=== PATIENT | male | born 1995 | race African-American/Black ===

== ENCOUNTER 2018-02-01 12:16 | Emergency (ER) | payer BC ==
--- NOTE | 2018-02-01 13:39 | RAD ---
HISTORY: Right knee pain, twisting COMPARISONS: None VIEWS: 4, Frontal, lateral, axial, and oblique views of the right knee FINDINGS: BONE DENSITY: Normal. BONES: There is no displaced fracture. JOINTS: There is a large suprapatellar joint effusion. There is no appreciable lipohemarthrosis. ALIGNMENT: There is no dislocation. SOFT TISSUES: Unremarkable. OTHER FINDINGS: None. IMPRESSION: LARGE EFFUSION. NO ACUTE OSSEOUS INJURY. IF SYMPTOMS PERSIST, RECOMMEND REPEAT IMAGING.
[2018-02-01 14:59] VITALS: BP 122/72
--- NOTE | 2018-02-01 16:23 | ED ---
Lower Extremity - HPI Summary HPI Summary: Patient is a 22-year-old male presenting to the ED with chief complaint of right knee pain and swelling 2 weeks. He states he sustained an injury while attempting to get up from a short chair 2 weeks ago and felt a pop to the lateral portion of his knee with immediate swelling. He states the area had no pain and he was ambulating well, but with a moderate amount of swelling. 5 days ago he was seen by community health due to the continuing of swelling. He was encouraged ibuprofen and elevation, but states immediately after taking the ibuprofen his knee began to swell even more and now he is unable to ambulate. He endorses pain only with attempting to ambulate, better with rest. Pain is discretely located of the lateral side of the right knee and he denies any calf pain, upper or lower extremity pain including ankle pain or hip pain. Denies any erythema or warmth. Denies fevers. Denies any known rashes, but bites, history or chance of Lyme disease and has been feeling otherwise well. No history of gout. - History of Current Complaint Chief Complaint: EDExtremityLower Stated Complaint: RT KNEE PAIN/SWELLING Time Seen by Provider: 02/01/18 13:36 Hx Obtained From: Patient Mechanism Of Injury: Twisted Onset of Pain: Minutes Onset/Duration: Weeks Severity Initially: Mild Severity Currently: Mild Pain Intensity: 3 Pain Scale Used: 0-10 Numeric Timing: Constant Location: Is Discrete @ - R knee Character Of Pain: Aching Associated Signs And Symptoms: Positive: Knee Pain. Negative: Swelling, Redness , Bruising, Fever, Weakness, Dizziness, Abdominal Pain Aggravating Factor(s): Standing, Ambulation, Movement, Weight Bearing, Stairs Alleviating Factor(s): Rest, Elevation Able to Bear Weight: No - Risk Factors Gout Risk Factors: Male DVT Risk Factors: Negative Septic Arthritis Risk Factor: Negative - Allergies/Home Medications Allergies/Adverse Reactions: Allergies Allergy/AdvReac Type Severity Reaction Status Date / Time No Known Allergies Allergy Verified 02/01/18 12:24 Home Medications: Home Medications Naproxen Sodium [Aleve] 220 mg PO BID PRN 02/01/18 [History Confirmed 02/01/18] PMH/Surg Hx/FS Hx/Imm Hx Previously Healthy: Yes - Immunization History Hx Pertussis Vaccination: No Immunizations Up to Date: No Infectious Disease History: No Infectious Disease History: Denies: Traveled Outside the [place] in Last 30 Days - Social History Occupation: Unemployed, Student Lives: Dormitory/Roommates Alcohol Use: Rare Hx Substance Use: No Substance Use Type: Reports: None Hx Tobacco Use: No Smoking Status (MU): Never Smoked Tobacco Review of Systems Constitutional: Negative Negative: Fever, Chills, Fatigue, Skin Diaphoresis Positive: Photophobia Negative: Palpitations Negative: Shortness Of Breath, Cough Genitourinary: Negative Positive: no symptoms reported, see HPI Positive: Arthralgia, Myalgia Negative: Rash, Bruising Negative: Headache, Weakness, Paresthesia, Numbness, Syncope, Slurred Speech Psychological: Normal All Other Systems Reviewed And Are Negative: Yes Physical Exam Triage Information Reviewed: Yes Vital Signs On Initial Exam: Initial Vitals Temp Pulse Resp BP Pulse Ox 98.0 F 98 14 98/77 98 02/01/18 12:21 02/01/18 12:21 02/01/18 12:21 02/01/18 12:21 02/01/18 12:21 Vital Signs Reviewed: Yes Appearance: Positive: Well-Appearing, Well-Nourished Skin: Positive: Skin Color Reflects Adequate Perfusion Head/Face: Positive: Normal Head/Face Inspection Eyes: Positive: EOMI Neck: Positive: Supple, No Lymphadenopathy Respiratory/Lung Sounds: Positive: Clear to Auscultation, Breath Sounds Present Cardiovascular: Positive: RRR, Pulses are Symmetrical in both Upper and Lower Extremities Bowel Sounds: Positive: Present Musculoskeletal: Positive: Limited @ - straight leg raise, limited flexion and extension d/t swelling - little effusion. no bursa., Pain @ - R knee. Negative: Apurva Sign Left, Apurva Sign Right, Edema Left, Edema Right Neurological: Positive: Speech Normal Psychiatric: Positive: Normal, Affect/Mood Appropriate AVPU Assessment: Alert Diagnostics - Vital Signs Vital Signs Temp Pulse Resp BP Pulse Ox 02/01/18 14:55 97.6 F 74 18 122/72 98 02/01/18 12:21 98.0 F 98 14 98/77 98 - Laboratory Lab Statement: Any lab studies that have been ordered have been reviewed, and results considered in the medical decision making process. Lower Extremity Course/Dx - Course Course Of Treatment: Patient is evaluated for right knee pain after attempting to get up from a chair 2 weeks ago. On physical exam there appears to be bulging of the size of the patellar ligament and obliteration of the hollows at the medial and lateral edges. There is a large effusion with no fracture seen on xray. I did not tap this knee as patient states he will follow up tomorrow with ortho and he has had this effusion with no worsening of symptoms x 5 days. Risk factors for gout and septic arthritis/septic joint are low. Denies IV drug use, immunosuppression, open wounds, poor diet, PVD or alcohol use. - Diagnoses Provider Diagnoses: Joint effusion Discharge - Sign-Out/Discharge Documenting (check all that apply): Discharge/Admit/Transfer - Discharge Plan Condition: Stable Disposition: HOME Patient Education Materials: Swollen Knee Joint (ED) Referrals: [facility] - David MAURICIO [Primary Care Provider] - Trudy Peter MD [Medical Doctor] - Additional Instructions: Please follow-up with Dr. Peter Keep knee immobilizer applied Keep Odell wrap on to disperse fluid Elevate as much as possible Ice to the area - Billing Disposition and Condition Condition: STABLE Disposition: HOME
== END 2018-02-01 14:55 | disposition home or self-care (01) ==
LOC: ED 12:16
DX: M25.561 Pain in right knee (principal); M25.461 Effusion, right knee
CPT/HCPCS: 99282